=== PATIENT | male | born 1950 | race Caucasian/White ===

== ENCOUNTER → 2016-08-22 | Outpatient (CLI) | payer OTHER ==
[~2016-08-22] MED LIST: IOPAMIDOL (ISOVUE-300) 50 ML VIAL IV ONE
[2016-08-22 11:11] LABS: GLOMERULAR FILTRATION RATE > 60
--- NOTE | 2016-08-22 18:10 | CT ---
CT Chest, With IV Contrast, dated August 22, 2016 Indication: Multiple pulmonary nodules. Follow up. Technique: The chest was scanned with 4-mm thick helically acquired slices following uneventful intr avenous administration of 90 mL of Isovue-300. Dose reduction techniques were utilized. Comparison: CT of the chest from [facility] dated May 15, 2016 and PET/CT from [facility] dated May 30, 2016. Findings: The largest pulmonary nodules in the right and left lower lobe have equivocally decreased in size since May 2016. For example, a reference left lower lobe nodule in the posterior segment on image #158 of series #4 now measures 8 x 7 mm (previously 9 x 8 mm). A second nodule in the late ral segment left lower lobe on image #191 now measures 6 x 3 mm (previously 8 x 5 mm). A dominant calero bpleural nodule in the lateral segment right lower lobe on image #170 of series #4 now measures 4.5 x 4 mm (previously 6 x 5 mm). The remainder of the noncalcified polygonal and ovoid nodules scattered throughout the right and left lung are otherwise unchanged. No new pulmonary nodules have developed. Mild diffuse peribronchial thickening is unchanged. No bronchiectasis or mucous plugging. No pulmon anil fibrosis or emphysema. The heart size is normal. No pericardial or pleural effusion. No enlarged lymph node or mass throug hout the axilla, mediastinum, or pulmonary jessie. Previously mildly enlarged lymph nodes in the pulmo nary jessie, right paratracheal contour, and aortopulmonary window have completely resolved. A well-ci rcumscribed cyst in the right kidney is unchanged. No bone lesions. Impression: 1. Minimal decreased size of largest bibasilar pulmonary nodules since May 2016 indicate a proba ana benign process such as granulomatous infection. Recommend continued surveillance. 2. Resolved lymphadenopathy was likely an infectious/inflammatory process. 3. No new pulmonary nodule, lymphadenopathy, or acute process. 4. Minimal diffuse peribronchial thickening is unchanged.
== END ==
LOC: FIMAGING 10:16
PROVIDERS: ATTEND Internal Medicine Hematology & Oncology
DX: R91.1 Solitary pulmonary nodule (principal)
CPT/HCPCS: 71260; Q9967

== ENCOUNTER → 2019-02-06 | Outpatient (CLI) | payer OTHER | LOC: FIMAGING 10:58 ==